=== PATIENT | male | born 1985 | race American Indian/Alaskan Native ===

== ENCOUNTER 2018-02-04 07:57 | Emergency (ER) | payer SELFPAY ==
[2018-02-04 09:08] VITALS: BP 118/71
--- NOTE | 2018-02-04 09:39 | Emergency Department Report ---
ED Back Pain/Injury HPI - General Chief Complaint: Back Pain/Injury Stated Complaint: WHOLE BACK PAIN Time Seen by Provider: 02/04/18 09:17 Source: patient Limitations: No Limitations - History of Present Illness Initial Comments: This is a 32-year-old -[place] male who presents with chronic back pain for 3-4 months. 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 The patient reports pain is 8 out of 10 on pain scale and sharp nonradiating. Patient states he is taking NSAIDs and marijuana for pain with no improvement of symptoms. He is also complaining of some numbness to me at part of back that is intermittent. Patient denies past medical history. Patient denies recent injury, chest pain, abdominal pain, change in voice or bowel pattern, erythema. MD Complaint: back pain Onset/Timin -: month(s) Similar Symptoms Previously: Yes Place: home, work Radiation: none Severity: moderate Severity scale (0 -10): 8 Quality: sharp, aching Consistency: intermittent Improves With: none Worsens With: movement Associated Symptoms: numbness. denies: confusion, weakness, chest pain, difficulty walking, cough, difficulty urinating, diaphoresis, incontinence, fever/chills, constipation, headaches, abdominal pain, loss of appetite, malaise , nausea/vomiting, rash, seizure, shortness of breath, syncope Treatments Prior to Arrival: NSAIDS - Related Data Previous Rx's Medication Instructions Recorded Last Taken Type Meloxicam [Mobic] 15 mg PO DAILY #30 tablet 02/04/18 Unknown Rx tiZANidine [Zanaflex] 4 mg PO TID PRN #15 tablet 02/04/18 Unknown Rx traMADol [Ultram 50 MG tab] 50 mg PO Q6HR PRN #12 tablet 02/04/18 Unknown Rx Allergies Allergy/AdvReac Type Severity Reaction Status Date / Time No Known Allergies Allergy Unverified 02/04/18 09:05 ED Review of Systems ROS: Stated complaint: WHOLE BACK PAIN Other details as noted in HPI Constitutional: denies: chills, fever Respiratory: denies: cough, shortness of breath, wheezing Cardiovascular: denies: chest pain, palpitations Gastrointestinal: denies: abdominal pain, nausea, diarrhea Musculoskeletal: back pain. denies: joint swelling, arthralgia Skin: denies: rash, lesions Neurological: numbness. denies: headache, weakness, paresthesias Psychiatric: denies: anxiety, depression ED Back Pain Physical Exam - Exam General: Vital signs noted. No distress. Alert and acting appropriately. Back/Abdomen: Yes Perithoracic Tenderness, Yes Sacroiliac Tenderness, No Abdominal Tenderness, No Perilumbar Tenderness (midline), No Flank Tenderness, No Straight Leg Raise Pain Neuro: Yes Normal Sensation, Yes Normal DTR's, Yes Normal Gait, No Motor Weakness ED Course Vital Signs 02/04/18 09:05 Temperature 98.7 F Pulse Rate 59 L Respiratory 16 Rate Blood Pressure 118/71 O2 Sat by Pulse 100 Oximetry ED Medical Decision Making - Medical Decision Making This is a 32 y.o. male presents with back pain for 3-4 months. Patient was examined by me. Vitals are normal and patient is in no acute distress. Obtained x-rays of thoracic and L-spine. X-rays read by radiologist and report reviewed by myself. Degenerative changes of the mid thoracic spine with associated kyphosis. No acute fracture or dislocation. Patient informed of results. Start ibuprofen and cyclobenzaprine for muscle strain pain. Plan discussed with patient to discharge home and treat outpatient. He agrees with ER plan. Patient discharged home in stable condition. Follow up with PCP in 2-3 days. Critical care attestation.: If time is entered above; I have spent that time in minutes in the direct care of this critically ill patient, excluding procedure time. ED Disposition Clinical Impression: Strain of muscle and tendon of back wall of thorax, initial encounter, Muscle strain of upper back, Back pain with radiculopathy, Degenerative disc disease, thoracic Disposition: - TO HOME OR SELFCARE Is pt being admited?: No Does the pt Need Aspirin: No Condition: Stable Additional Instructions: Rest Use ice or heat on affected area for 20 minutes and off for 2 hours. Take pain medication as needed for pain. Don't drive or operate heavy machinery while taking muscle relaxers because they may cause drowsiness. Follow up with Primary Care Provider in 2-3 days. Prescriptions: Meloxicam [Mobic] 15 mg PO DAILY #30 tablet tiZANidine [Zanaflex] 4 mg PO TID PRN #15 tablet PRN Reason: Muscle Spasm traMADol [Ultram 50 MG tab] 50 mg PO Q6HR PRN #12 tablet PRN Reason: Pain Referrals: [facility] [Outside] - 3-5 Days [facility] [Outside] - 3-5 Days [facility] [Outside] - 3-5 Days Print Language: OMANI
--- NOTE | 2018-02-04 11:36 | XRay Report ---
FINAL REPORT EXAM: XR SPINE LUMBOSACRAL 2-3V HISTORY: low back pain COMPARISON: None. TECHNIQUE: Three views of the lumbar spine FINDINGS: There is normal alignment without acute fracture or dislocation. The vertebral body heights and intervertebral disc spaces are maintained. The posterior elements are intact. The paravertebral soft tissues are normal. IMPRESSION: No acute bony abnormality of the lumbar spine.
--- NOTE | 2018-02-04 11:37 | XRay Report ---
FINAL REPORT EXAM: XR SPINE THORACIC 2V HISTORY: back pain COMPARISON: None. TECHNIQUE: Three views of the thoracic spine FINDINGS: There is mild anterior wedging of a few mid thoracic vertebral bodies with associated anterior osteophyte formation. There is mild kyphosis of the thoracic spine. There is no acute fracture or dislocation. The posterior elements are intact. The paravertebral soft tissues are normal. IMPRESSION: Degenerative changes of the mid thoracic spine with associated kyphosis. No acute fracture or dislocation.
[2018-02-04] MEDS ORDERED: ULTRAM PO ONE (11:48)
== END 2018-02-04 11:56 | disposition home or self-care (01) ==
LOC: ED 07:57
DX: S29.012A Strain of muscle and tendon of back wall of thorax, initial encounter (principal); M51.14 Intervertebral disc disorders with radiculopathy, thoracic region; G89.29 Other chronic pain; X50.9XXA Other and unspecified overexertion or strenuous movements or postures, initial encounter; Y93.89 Activity, other specified; Y99.0 Civilian activity done for income or pay; Y92.69 Other specified industrial and construction area as the place of occurrence of the external cause
CPT/HCPCS: 72070; 72100; 99283